=== PATIENT | male | born 1940 | race Caucasian/White ===

== ENCOUNTER 2024-06-17 15:45 | Inpatient (IN) ==
[2024-06-17 16:39] LABS: INR 1.1 (0.85-1.14)
[2024-06-17 17:14] LABS: Albumin/Globulin Ratio 0.9 (1-3); Calcium 7.8 mg/dL (8.6-10.3); Creatinine, Serum 1.43 mg/dL (0.67-1.17); Globulin 3.3 g/dL (2-4); Potassium 3.8 mmol/L (3.5-5.0); Total Bilirubin 0.6 mg/dL (0.2-1.0); Total Protein 6.3 g/dL (6.4-8.9); eGFR CKD-EPI 47.7 (>60)
[2024-06-17 17:47] LABS: High Sensitivity Troponin 1 Hr 10 pg/mL (<20)
[2024-06-17 17:52] LABS: ABS Basophils 0.1 10^3/uL (0.0-0.1); ABS Lymphocytes 2.1 10^3/uL (1.0-4.8); ABS Monocytes 0.7 10^3/uL (0.0-1.1); ABS Neutrophils 7.3 10^3/uL (1.5-7.6); ABS Nucleated RBC 0.01 10^3/ul; Hematocrit 38.4 % (38-53); Hemoglobin 12.6 g/dL (13.2-16.3); Lymphocyte % 20.3 %; Mean Corpuscular Hemoglobin 27.4 pg (27-33); Mean Corpuscular Hgb Conc 32.7 g/dL (31-36); Mean Corpuscular Volume 83.8 fL (80-97); Nucleated Red Blood Cells % 0.1 %/100WBC (0.0-0.8); Platelet Count 142 10^3/uL (150-450); Red Blood Count 4.58 10^6/uL (4.06-5.63); Red Cell Distribution Width 15.3 % (12-17); White Blood Count 10.1 10^3/uL (3.6-10.2)
[2024-06-17] MEDS: Iodixanol (CONTRAST) 320 MG/ML 100 ML SDV IV ONE (18:28)
[2024-06-17 18:36] LABS: C Reactive Protein 45.94 mg/L (<8.01)
[2024-06-18] MEDS: Heparin 5000 UNITS/ML 1 mL VIAL SUBCUT SCH (00:06)
[2024-06-18] MEDS: cefTRIAXone 1 gm/50 mL D5W 1 GM/50 ML BAG IV SCH (00:54)
[2024-06-18] MEDS: Azithromycin 500 mg/250 ml NS 500 MG/250 ML BAG IVPB SCH (00:57)
[2024-06-18 00:58] LABS: PCO2 Arterial 39 mmHg (35-45); PO2 Arterial 68 mmHg (80-100)
[2024-06-18] MEDS ORDERED: Albuterol HFA INHALER 8 gm MDI INH PRN (00:59)
[2024-06-18 01:13] LABS: INR 1.14 (0.85-1.14)
[2024-06-18] MEDS: Remdesivir 100 mg Vial 200 MG in NS 0.9% 250 ml 210 ML IV ONE (01:33)
[2024-06-18] MEDS: Lactated Ringers 1000 ml BAG 1,000 ML IV SCH (01:54)
[2024-06-18] MEDS: FIDAXOMICIN 200 MG PO SCH (01:54)
[2024-06-18] MEDS: Lactated Ringers 1000 ml BAG 1,000 ML IV ONE ×2 (03:00→04:25)
[2024-06-18] MEDS ORDERED: Fidaxomicin 200 mg TAB (NF) PO SCH (06:00)
[2024-06-18 07:01] LABS: ABS Basophils 0.1 10^3/uL (0.0-0.1); ABS Lymphocytes 3.2 10^3/uL (1.0-4.8); ABS Monocytes 1.1 10^3/uL (0.0-1.1); ABS Neutrophils 5.3 10^3/uL (1.5-7.6); ABS Nucleated RBC 0.04 10^3/ul; Hematocrit 34.4 % (38-53); Hemoglobin 11.6 g/dL (13.2-16.3); Mean Corpuscular Hemoglobin 28.4 pg (27-33); Mean Corpuscular Hgb Conc 33.8 g/dL (31-36); Mean Corpuscular Volume 84.2 fL (80-97); Mean Platelet Volume 10.4 fL (7.5-11.2); Nucleated Red Blood Cells % 0.4 %/100WBC (0.0-0.8); Platelet Count 115 10^3/uL (150-450); Red Blood Count 4.09 10^6/uL (4.06-5.63); Red Cell Distribution Width 15.6 % (12-17); White Blood Count 9.7 10^3/uL (3.6-10.2)
[2024-06-18 07:47] LABS: Calcium 7.2 mg/dL (8.6-10.3); Creatinine, Serum 1.29 mg/dL (0.67-1.17); Magnesium 1.6 mg/dL (1.9-2.7); Potassium 3.9 mmol/L (3.5-5.0)
[2024-06-18] MEDS: Mometasone/Formoter 100/5 MDI INH SCH (08:02)
[2024-06-18] MEDS: Aspirin EC 81 mg TAB.EC (enteric coated) PO SCH (08:48)
[2024-06-18] MEDS: Magnesium Sulf 4 GM/100 ML IV 4,000 MG/100 ML BAG IVPB ONE (09:57)
[2024-06-18] MEDS: Fidaxomicin 200 mg TAB (NF) PO SCH (09:58)
[2024-06-18] MEDS ORDERED: Lactated Ringers 1000 ml BAG 1,000 ML IV SCH (10:00)
[2024-06-19 06:43] LABS: INR 1.08 (0.85-1.14)
[2024-06-19 06:48] LABS: ABS Lymphocytes 2.2 10^3/uL (1.0-4.8); ABS Monocytes 0.6 10^3/uL (0.0-1.1); ABS Neutrophils 2.9 10^3/uL (1.5-7.6); Hematocrit 35.8 % (38-53); Hemoglobin 11.9 g/dL (13.2-16.3); Lymphocyte % 38.1 %; Mean Corpuscular Hgb Conc 33.2 g/dL (31-36); Mean Corpuscular Volume 84.4 fL (80-97); Mean Platelet Volume 10.5 fL (7.5-11.2); Nucleated Red Blood Cells % 0.1 %/100WBC (0.0-0.8); Platelet Count 140 10^3/uL (150-450); Red Blood Count 4.24 10^6/uL (4.06-5.63); Red Cell Distribution Width 15.6 % (12-17); White Blood Count 5.7 10^3/uL (3.6-10.2)
[2024-06-19 07:37] LABS: Albumin 2.6 g/dL (3.2-5.2); Albumin/Globulin Ratio 0.9 (1-3); Calcium 7.9 mg/dL (8.6-10.3); Creatinine, Serum 1.53 mg/dL (0.67-1.17); Globulin 2.9 g/dL (2-4); Magnesium 2.5 mg/dL (1.9-2.7); Potassium 4.4 mmol/L (3.5-5.0); Total Bilirubin 0.5 mg/dL (0.2-1.0); Total Protein 5.5 g/dL (6.4-8.9)
[2024-06-19] MEDS: Remdesivir 100 mg Vial 100 MG in NS 0.9% 250 ml 230 ML IV SCH (09:44)
[2024-06-20 06:18] LABS: INR 0.98 (0.85-1.14)
[2024-06-20 07:03] LABS: Calcium 7.5 mg/dL (8.6-10.3); Creatinine, Serum 1.45 mg/dL (0.67-1.17); Potassium 4.2 mmol/L (3.5-5.0); eGFR CKD-EPI 46.9 (>60)
[2024-06-20 10:16] VITALS: BP 106/60
== END 2024-06-20 13:40 | DRG 177 ==
LOC: ED 15:45 → EDHOLD 15:45 → MEDTELE 22:43 → OBSVTOIN 22:43 → SUATTDRO 22:43 → MEDTELE 06-18 07:29
PROVIDERS: ADMIT Internal Medicine; ATTEND Internal Medicine